=== PATIENT | male | born 1985 | race African-American/Black ===

== ENCOUNTER 2017-10-02 02:46 | Emergency (ER) | payer SELFPAY ==
[~2017-10-02] VITALS: Ht 167.6 cm; Wt 60.0 kg
[2017-10-02 02:55] VITALS: BP 133/86; PULSE 73; RESP 18; TEMP 97.7; O2SAT 98
[2017-10-02] MEDS ORDERED: HYDROmorphone HCL PF 2 MG/ML VIAL IV PUSH ONE (03:30)
--- NOTE | 2017-10-02 03:47 | RADRPT ---
EXAM DATE: 10/02/2017 3:22 AM EDT AGE/SEX: 31 years / Male INDICATIONS: Trauma; fall. CLINICAL DATA: This is the patient's initial encounter. Patient reports that signs and symptoms have been present for 1 day and indicates a pain score of 0/10. MEDICAL/SURGICAL HISTORY: None. None. RADIATION DOSE: 56.35 CTDI (mGy) COMPARISON: No prior exams available for comparison. TECHNIQUE: CT of the head without contrast. Using automated exposure control and adjustment of the mA and/or kV according to patient size, radiation dose was kept as low as reasonably achievable to ob tain optimal diagnostic quality images. DICOM format image data is available electronically for revi ew and comparison. FINDINGS: Cerebrum: The ventricles are normal for age. No evidence of midline shift, mass lesion, hemorrhage or acute infarction. No extraaxial fluid collections are seen. Posterior Fossa: The cerebellum and brainstem are intact. The 4th ventricle is midline. The cerebe llopontine angle is unremarkable. Extracranial: The visualized portion of the orbits is intact. Skull: The calvaria is intact. No evidence of skull fracture. CONCLUSION: Negative CT examination the head. Electronically signed by: Yaya Wellington MD 10/02/2017 3:46 AM EDT
--- NOTE | 2017-10-02 03:48 | RADRPT ---
EXAM DATE: 10/02/2017 3:41 AM EDT AGE/SEX: 31 years / Male INDICATIONS: Shoulder dislocation from fall. CLINICAL DATA: This is the patient's initial encounter. Patient reports that signs and symptoms have been present for 1 day and indicates a pain score of 5/10. MEDICAL/SURGICAL HISTORY: None. None. COMPARISON: No prior exams available for comparison. FINDINGS: There is an anterior dislocation of the humeral head at the glenohumeral joint. The acromioclavicular joint is normally aligned. CONCLUSION: Anterior dislocation. Electronically signed by: Yaya Wellington MD 10/02/2017 3:47 AM EDT
[2017-10-02] MEDS ORDERED: PROPOFOL 1000 MG/100 ML BTL IV ONE (04:00)
[2017-10-02] MEDS ORDERED: KETAMINE HCL 500 MG/10 ML VIAL OTHER ONE (04:00)
--- NOTE | 2017-10-02 04:14 | PD ---
HPI . right shoulder dislocation Chief Complaint: Injury Time Seen by Provider: 02:58 Travel History International Travel<30 days: No Contact w/Intl Traveler<30days: No Traveled to known affect area: No History of Present Illness HPI Patient is a 31-year-old male who has severe right shoulder pain that started 2 hrs ago JPTA to ER . Pt said he has had multiple dislocations of his right shoulder and tonight shoulder has popped out again... comes in to ER for severe pain localized to the right shoulder sharp stabbing pain and sent for x- rays of shoulder RIGHT -> Pain severe 01/16.. Pt is given procedural sedation for right shoulder reduction PFSH Past Medical History Musculoskeletal: Yes (PT STATES HE HAS PROBLEM WITH HIS JOINT AND DISLOCATES HIS SHOULDERS OFTEN) Social History Alcohol Use: Yes (OCCASSIONAL) Tobacco Use: No Substance Use: No Allergies-Medications (Allergen,Severity, Reaction): Coded Allergies: No Known Allergies (Unverified , 10/04/17) Reported Meds & Prescriptions Reported Meds & Active Scripts Active Bactrim DS (Sulfamethoxazole-Trimethoprim) 800-160 Mg Tab 1 Tab PO BID 10 Days Review of Systems Except as stated in HPI: all other systems reviewed are Neg Musculoskeletal: Positive: Myalgias, Arthralgias, Pain Physical Exam Narrative GENERAL: Patient appears to be in severe pain due to the right shoulder dislocation SKIN: Warm and dry. HEAD: Atraumatic. Normocephalic. EYES: Pupils equal and round. No scleral icterus. No injection or drainage. ENT: No nasal bleeding or discharge. Mucous membranes pink and moist. NECK: Trachea midline. No JVD. CARDIOVASCULAR: Regular rate and rhythm. RESPIRATORY: No accessory muscle use. Clear to auscultation. Breath sounds equal bilaterally. GASTROINTESTINAL: Abdomen soft, non-tender, nondistended. Hepatic and splenic margins not palpable. MUSCULOSKELETAL: Extremities right shoulder is deformed and appears dislocated tender to palpation hanging everted NEUROLOGICAL: Awake and alert. No obvious cranial nerve deficits. Motor grossly within normal limits. Five out of 5 muscle strength in the arms and legs. Normal speech. PSYCHIATRIC: Appropriate mood and affect; insight and judgment normal. Data Data Last Documented VS Orders Orders Shoulder, Limited(2vws) (10/02/17 ) Ct Brain W/O Iv Contrast(Rout) (10/02/17 ) Hydromorphone Pf Inj (Dilaudid Pf Inj) (10/02/17 03:30) Ketamine Inj (Ketalar Inj) (10/02/17 04:00) Propofol 1000 Mg/100 Ml Inj (Diprivan 10 (10/02/17 04:00) Shoulder, Limited(2vws) (10/02/17 ) [facility] Medical Decision Making Medical Screen Exam Complete: Yes Emergency Medical Condition: Yes Differential Diagnosis shoulder dislocation vs fractured humerus vs dislocated and frx , vs rotator cuff tears glenoid fossa fracture avulsion Narrative Course pt has obvious anterior dislocated shoulder no fracture seen.. Pt has manual reduction by this MD and traction counter traction and eversion with rapid success of reduction, Pt sedated with ketofol = 1/2 & 1/2 ketamine and propofol... pt tolerated sedation and reduction well sling placed ortho consult given pain meds rx Procedures Procedure Narrative Shoulder reduction The patient was placed on a mental health therapist and pulse oximetry. An ambu bag and suction was immediately available at bedside. The patient was monitored by the nurse. Oxygen saturation, heart rate and blood pressure were monitored. Procedural sedation was acheived using [50 mg of propofol and 50 mg of ketamine- ]. The patient was observed until awake and alert. Procedural Sedation time in attendance was [-30 minutes] minutes. Reduction of right shoulder dislocation done with traction countertraction everting at the patient is been sedated with propofol and ketamine 10 minutes before joint popped back into place placed in a sling posterior reduction films done patient tolerated procedure well ketamine made him dissociated temporarily and then he emerged without complication Diagnosis Primary Impression: Shoulder dislocation Qualified Codes: S43.006A - Unspecified dislocation of unspecified shoulder joint, initial encounter Referrals: Dany Koehler MD Patient Instructions: General Instructions, Shoulder Dislocation (ED) Departure Forms: Tests/Procedures, Work Release Enter return to work date: Oct 09, 2017 Special Instructions: no heavy lifting with right arm Disposition: 01 DISCHARGE HOME Condition: Good Jalen Kirby MD Oct 02, 2017 04:14
--- NOTE | 2017-10-02 04:55 | RADRPT ---
EXAM DATE: 10/02/2017 4:36 AM EDT AGE/SEX: 31 years / Male INDICATIONS: Post reduction right shoulder. CLINICAL DATA: This is the patient's initial encounter. Patient reports that signs and symptoms have been present for 1 day and indicates a pain score of 0/10. MEDICAL/SURGICAL HISTORY: None. None. COMPARISON: [facility] [place], SHOULDER RIGHT [facility] (2VWS), 10/02/2017. . FINDINGS: There is been successful reduction of the previously seen anterior humeral head dislocation. Bony str uctures are intact and in normal alignment. Joints are intact without dislocation or significant art hropathy. Osseous density is normal. Soft tissues are unremarkable. No radiopaque foreign bodies s een. CONCLUSION: Successful reduction of the previously seen anterior dislocation. Electronically signed by: Yaya Wellington MD 10/02/2017 4:54 AM EDT
[2017-10-02] MEDS ORDERED: TRAM50TA PO (05:55)
[2017-10-02] MEDS ORDERED: IBUP-232 PO (05:55)
[2017-10-03] MEDS ORDERED: BACT800T5 PO (09:29)
== END 2017-10-02 06:20 | disposition home or self-care (01) ==
LOC: NEPE 02:46
DX: S43.004A Unspecified dislocation of right shoulder joint, initial encounter (principal); X58.XXXA Exposure to other specified factors, initial encounter
CPT/HCPCS: 23650; 70450; 73030; 96374; 99285; J1170